=== PATIENT | male | born 1935 | race Caucasian/White ===

== ENCOUNTER → 2017-05-02 11:10 | Outpatient (CLI) | payer MEDICARE ==
[~2017-05-02] VITALS: Ht 177.8 cm; Wt 111.4 kg
--- NOTE | ~2017-05-02 | HEMODYNAMI ---
PATIENT:SELINA COOK MEDICAL RECORD: [id number] : 35 LOCATION:D.CAT ADMISSION DATE: 05/02/17 Generatedon:05/02/201714:03 Patient name: SELINA COOK Patient #: [id number] SSN: [id number] : 1935 Date of study: 05/02/2017 Page: Of Hemodynamic Procedure Report Patient Data Patient Demographics Procedure consent was obtained First Name: SELINA Gender: Male Last Name: JOEY : 1935 Middle Initial: TYLOR Age: 81 year(s) Patient #: [id number] Race: SSN: [id number] Additional ID: [id number] Contact details [address]: [address] [place] [address] State: [place] City: [place] Zip code: [address] Past Medical History Allergies Allergen Reaction Date Comments Reported Other allergy 11/08/2015 sulfa, clavulanic acid, amoxicillin Other allergy 05/02/2017 Amoxicillin, Sulfa, Clavulanic acid Admission Admission Data Admission Date: 05/02/2017 Admission Time: 11:10 Height (in.): 70 BSA: 2.28 (m2) Height (cm.): 177.8 BMI: 35.23 (kg/m2) Weight (lbs.): 245.51 Weight (kg.): 111.36 Lab Results Lab Result Date: 05/02/2017 Lab Result Time: 0:00 Biochemistry Name Units Result Min Max BUN mg/dl 31 --(----)-* 7 18 Creatinine mg/dl 1.6 --(----)-* 0.6 1.3 CBC Name Units Result Min Max Hemoglobin g/dl 14.3 --(*---)-- 13.5 17.5 Procedure Procedure Types Cath Procedure Diagnostic Procedure LHC LHC w/Coronaries w/Grafts PCI Procedure Coronary Stent Coronary Stent Initial Procedure Description Procedure Date Procedure Date: 05/02/2017 Procedure Start Time: 13:05 Procedure End Time: 13:53 Procedure Staff Name Function Harish Kennedy MD Performing Physician Edna Zarco RT Monitor Moe Infante RN Nurse Rosalva Hargrove RT Scrub Procedure Data Cath Procedure Fluoroscopy Diagnostic fluoroscopy Total fluoroscopy Time: time: 13.1 min 13.1 min Diagnostic fluoroscopy Total fluoroscopy dose: dose: 2593 mGy 2593 mGy Contrast Material Contrast Material Type Amount (ml) Isovue 300 134 Entry Location Entry Primary Successful Side Size Upsize Upsize Entry Closure Succes sful Closure Location (Fr) 1 (Fr) 2 (Fr) Remarks Device Remarks Femoral Right 5 Fr 6 Fr Exoseal artery Short Estimated blood loss: 10 ml Diagnostic catheters Device Type Used For End Catheter Placement MULTIPACK JL 4.0 5Fr Procedure catheter DIAGNOSTIC AR MOD 5Fr Procedure Catheter ([id number]) DIAGNOSTIC IM 5Fr Procedure catheter ([id number]) MULTIPACK Pigtail 5 Fr Ventriculography catheter Procedure Complications No complications Procedure Medications Medication Administration Route Dosage 0.9% NaCl I.V. 100 ml/hr Oxygen NC 2 l/min Heparin Flush Bag added to field 2 bags (1000units/500ml NS) Lidocaine 2% added to field 20 Versed I.V. 1 mg Fentanyl I.V. 50 mcg Versed I.V. 1 mg Fentanyl I.V. 50 mcg Heparin Bolus I.V. 95062 units Versed I.V. 1 mg Plavix P.O. 600 mg Fentanyl I.V. 50 mcg Hemodynamics Rest HGB: 14.3 (g/dl) O2 Consumption: Estimated: 256.88 (ml/min) O2 Consumption index ed: Estimated:112.67 (ml/min/m) Heart Rate: 66 (bpm) Pressure Samples Time Site Value (mmHg) Purpose Heart Use Rate(bpm) 13:15 LV 151/29,38 Snapshot 65 13:16 LV 157/12,28 Pullback 67 13:16 AO 150/79(104) Pullback 67 Gradients Valve Time Site 1 Site 2 Mean SEP/DFP Peak To Heart Use (mmHg) (sec/min) Peak Rate (mmHg) (bpm) Aortic 13:16 LV AO 5 16 7 67 157/12,28 150/79(104) Calculations Valve P-P Mean Valve Index Valve Source Name Gradient Area Flow (cm2) Aortic 7 5 7 5 Snapshots Pre Cath Intra NCS Post Cath Vital Signs Time Heart Resp SPO2 etCO2 NIBP (mmHg) Rhythm Pain Sedation Rate (ipm) (%) (mmHg) Status Level (bpm) 12:57:54 66 18 99 36.2 155/89(139) NSR 0 (11) 10(A) , No pain 13:02:37 66 16 97 36.9 150/92(134) NSR 0 (11) 10(A) , No pain 13:07:17 66 17 95 45.2 153/85(122) NSR 0 (11) 10(A) , No pain 13:12:35 63 18 96 40.7 142/88(111) NSR 0 (11) 10(A) , No pain 13:18:43 66 19 97 39.9 138/86(112) NSR 0 (11) 10(A) , No pain 13:23:26 67 18 96 41.4 143/75(108) NSR 0 (11) 10(A) , No pain 13:28:06 64 16 97 36.9 150/83(118) NSR 0 (11) 10(A) , No pain 13:32:47 67 14 96 40.7 135/82(118) NSR 0 (11) 10(A) , No pain 13:37:26 68 12 97 36.2 140/80(116) NSR 0 (11) 10(A) , No pain 13:42:43 64 16 96 38.4 141/76(122) NSR 0 (11) 10(A) , No pain 13:47:24 65 13 98 36.2 138/78(109) NSR 0 (11) 10(A) , No pain 13:52:04 70 12 98 30.1 148/87(119) NSR 0 (11) 10(A) , No pain Medications Time Medication Route Dose Verified Delivered Reason Notes Effectiveness by by 13:01:42 0.9% NaCl I.V. 100 Moe Moe Per physician ml/hr Naresh Infante RN RN 13:01:52 Oxygen NC 2 Moe Moe Per physician l/min Naresh Infante RN RN 13:02:05 Heparin Flush added 2 bags Moe Moe used for Bag to Naresh Infante procedure (1000units/500ml field RN RN NS) 13:02:20 Lidocaine 2% added 20ml Moe Moe for local to vial Lorigan Lorigan anesthetic field RN RN 13:02:36 Versed I.V. 1 mg Moe Moe for sedation Naresh Infante RN RN 13:02:54 Fentanyl I.V. 50 mcg Moe Moe for sedation Naresh nIfante RN RN 13:06:51 Versed I.V. 1 mg Moe Moe for sedation Naresh Infante RN RN 13:06:56 Fentanyl I.V. 50 mcg Moe Moe for sedation Naresh Infante RN RN 13:25:20 Heparin Bolus I.V. 11,000 Moe Moe for units Naresh Infante anticoagulation RN RN 13:28:33 Versed I.V. 1 mg Moe Moe for sedation Naresh Infante RN RN 13:52:58 Plavix P.O. 600 mg Moe Moe for Naresh Infante antiplatelet RN RN therapy 13:56:29 Fentanyl I.V. 50 mcg Moe Moe for sedation Naresh Infante RN advertising manager Log Time Note 12:34:15 Edna MATIAS(R) sent for patient. Start room use. 12:34:16 Time tracking: Regular hours 12:34:20 Plan of Care:Hemodynamics will remain stable., Cardiac rhythm will remain stable., Comfort level will be maintained., Respiratory function will remain adequate., Patient/ family verbilizes understanding of procedure., Procedure tolerated without complication., Recovers from procedure without complications.. 12:34:23 Signed procedure consent form obtained from patient. 12:37:24 Lab Result : Hemoglobin 14.3 g/dl 12:37:24 Lab Result : Creatinine 1.6 mg/dl 12:37:24 Lab Result : BUN 31 mg/dl 12:37:44 Patient Weight : 245.51 lbs 12:37:59 Patient Height : 70 inches 12:40:58 Patient received from Pre/Post Procedure Room to CCL 1 Alert and oriented. Tansferred to table in Supine position. 12:40:59 Warm blankets applied, and tera hugger turned on for patient comfort. 12:41:00 ECG and BP/O2 sat monitors applied to patient. 12:41:00 Correct patient and procedure confirmed by team. 12:57:02 Vital chart was started 12:57:05 Baseline sample Acquired. 12:57:11 Rhythm: sinus rhythm 12:57:14 Full Disclosure recording started 12:58:07 H&P Date Dictated: 05/02/2017 Within 30 days and on chart.. 12:58:10 Pre-procedure instructions explained to patient. 12:58:12 Family in waiting room. 12:58:15 Patient NPO since Midnight. 12:58:47 Patient allergic to Other allergyAmoxicillin, Sulfa, Clavulanic acid 12:58:52 Is the patient allergic to Iodine/contrast media? No. 12:58:56 Was the patient premedicated? Yes 12:58:58 Is patient on blood thinner?No 12:59:02 Patient diabetic? Yes. 12:59:04 If diabetic: On Metformin? Unknown 12:59:10 Snore? Yes 12:59:13 Sleep apnea? No 12:59:19 Airway obstruction? Yes COPD 12:59:23 Dentures? No ? 12:59:37 IV patent on arrival in left antecubital with 0.9% NaCl at [facility]. 12:59:42 Lab results completed and on chart. 12:59:46 Right groin area was prepped with chlora-prep and draped in sterile fashion 12:59:48 Alarms reviewed by R. N. 12:59:49 Sharps counted by scrub and verified by R.N. 12:59:50 Physician arrived 12:59:50 Physician paged 12:59:51 --------ALL STOP TIME OUT------ 12:59:52 Final Timeout: patient, procedure, and site verified with staff and physician. All members of the team are in agreement. 12:59:54 Right groin site verified by team. 12:59:58 Physical assessment completed. ASA score P 2 - A patient with mild systemic disease as per Harish Kennedy MD. 13:00:04 Sedation plan: IV Moderate Sedation Medication:Versed, Fentanyl 13:01:42 0.9% NaCl 100 ml/hr I.V. was administered by Moe Infante RN; Per physician; 13:01:52 Oxygen 2 l/min NC was administered by Moe Infante RN; Per physician; 13:02:05 Heparin Flush Bag (1000units/500ml NS) 2 bags added to field was administered by oMe Infante RN; used for procedure; 13:02:20 Lidocaine 2% 20ml vial added to field was administered by Moe Infante RN; for local anesthetic; 13:02:36 Versed 1 mg I.V. was administered by Moe Infante RN; for sedation; 13:02:54 Fentanyl 50 mcg I.V. was administered by Moe Infante RN; for sedation; 13:05:15 Use device set Femoral Dx 13:05:17 Tegaderm 4 x 4 (1626W) opened to sterile field. 13:05:19 ACIST Manifold (48088) opened to sterile field. 13:05:20 ACIST Hand Control (05156) opened to sterile field. 13:05:21 Bag Decanter (2002S) opened to sterile field. 13:05:21 ACIST Syringe (54998) opened to sterile field. 13:05:22 Medline Cath Pack ([id number]) opened to sterile field. 13:05:23 DIAGNOSTIC WIRE .035 260cm J wire (017146) opened to sterile field. 13:05:24 DIAGNOSTIC Multipack 5Fr catheter set (FV6015) opened to sterile field. 13:05:25 PERCUTANEOUS ENTRY 19GA needle opened to sterile field. 13:05:56 Procedure started. 13:05:58 Local anesthetic to right femoral artery with Lidocaine 2% by Harish Kennedy MD.INITIAL ACCESS ONLY 13:06:29 A 5 Fr sheath was inserted into the Right Femoral artery 13:06:47 SHEATH 5Fr Prelude ([id number]) opened to sterile field. 13:06:51 Versed 1 mg I.V. was administered by Moe Infante RN; for sedation; 13:06:56 Fentanyl 50 mcg I.V. was administered by Moe Infante RN; for sedation; 13:08:13 A MULTIPACK JL 4.0 5Fr catheter was advanced over the wire and used for Procedure. 13:08:17 LCA angiography performed. 13:08:46 Catheter removed. 13:09:15 A DIAGNOSTIC AR MOD 5Fr Catheter (051120S) was advanced over the wire and used for Procedure. 13:09:52 RCA angiography performed. 13:11:03 SVG to Circ angiography performed. 13:11:16 Catheter removed. 13:11:32 A DIAGNOSTIC IM 5Fr catheter (745974P) was advanced over the wire and used for Procedure. 13:12:06 FRANK to LAD angiography performed. 13:15:13 Catheter removed. 13:16:05 A MULTIPACK Pigtail 5 Fr catheter was advanced over the wire and used for Ventriculography. 13:16:11 EF : 50 % 13:19:54 Proceeding to intervention. 13:19:54 Catheter removed. 13:20:03 INFLATOR Merit BasixCompak (FN7083) opened to sterile field. 13:20:50 GUIDE 6FR XBLAD 4.0 catheter (33973580) opened to sterile field. 13:21:29 BMW 190cm [place] 2 J wire (7313766Q) opened to sterile field. 13:21:44 SHEATH 6FR [place] (KWQ369) opened to sterile field. 13:22:09 TUBING High Pressure Extension Tubing (Kennedy) ([id number]) opened to sterile field. 13:22:33 Sheath upsized to a 6 Fr Short. 13:23:11 6 Fr XBLAD 4 guide catheter was inserted over the wire 13:23:24 BMW wire advanced. 13:25:20 Heparin Bolus 11,000 units I.V. was administered by Moe Infante RN; for anticoagulation; 13:27:01 BMW 300cm [place] 2 J wire ([id number]) opened to sterile field. 13:28:33 Versed 1 mg I.V. was administered by Moe Infante RN; for sedation; 13:28:37 Inflation number: 1 A EMERGE OTW 3.0 x 15 balloon ([id number]) was prepped and advanced across the Mid CX, then inflated to 12 ANNETTA for 0:24 (min:sec). 13:29:36 Inflation number: 1 The EMERGE OTW 3.0 x 15 balloon ([id number]) was reinflated across the Prox CX, to 14 ANNETTA for 0:27 (min:sec). 13:34:16 Balloon removed over the wire. 13:36:36 Inflation number: 1 A MAVERICK 2.0 X 15 balloon ([id number]) was prepped and advanced across the Dist CX, then inflated to 10 ANNETTA for 0:18 (min:sec). 13:37:35 Balloon removed over the wire. 13:43:34 Inflation Number: 2 A ELUNIR 2.5 x 12 stent ([id number]) was prepped and advanced across the Dist CX. The stent was deployed at 14 ANNETTA for 0:14 (min:sec). 13:44:53 Inflation number: 2 The EMERGE OTW 3.0 x 15 balloon ([id number]) was reinflated across the Prox CX, to 14 ANNETTA for 0:28 (min:sec). 13:45:26 Inflation number: 3 The EMERGE OTW 3.0 x 15 balloon ([id number]) was reinflated across the Prox CX, to 14 ANNETTA for 0:20 (min:sec). 13:48:34 Wire removed. 13:48:35 Guide catheter removed. 13:49:05 EXOSEAL 6Fr (EX600) opened to sterile field. 13:49:27 Sheath removed intact; hemostasis achieved with Exoseal to the Right Femoral artery. 13:49:55 Procedure ended.(Physican Out) 13:51:18 Fluoroscopy time 13.10 minutes. 13:51:24 Fluoroscopy dose: 2593 mGy 13:51:24 Flurop Dose total: 2593 13:51:42 Contrast amount:Isovue 300 134ml. 13:51:44 Sharps counted by scrub and verified by R.N. 13:51:49 Insertion/operative site no bleeding no hematoma. 13:51:53 Post right femoral artery:stable 13:51:56 Post Procedure Pulses reassessed and unchanged 13:52:00 Post-procedure physical assessment completed. ASA score P 2 - A patient with mild systemic disease as per Harish Kennedy MD. 13:52:02 Post procedure rhythm: unchanged. 13:52:06 Estimated blood loss: 10 ml 13:52:09 Post procedure instruction explained to patient.Patient verbalizes understanding. 13:52:34 Procedure type changed to Cath procedure, Diagnostic procedure, LHC, LHC w/Coronaries w/Grafts, PCI procedure, Coronary Stent, Coronary Stent Initial 13:52:35 Procedure and supply charges have been captured, reviewed, submitted and are correct. 13:52:58 Plavix 600 mg P.O. was administered by Moe Infante RN; for antiplatelet therapy; 13:53:13 Procedure Complication : No complications 13:53:15 Vital chart was stopped 13:53:17 See physician's report for complete and final results. 13:53:19 Report given to Pre/Post Procedure Room. 13:53:23 Patient transfered to Pre/Post Procedure Room with Stretcher. 13:53:25 Full Disclosure recording stopped 13:53:25 Procedure ended. 13:53:32 End room use (Document Last) 13:56:06 ACC-PCI Only Patient was given prescriptions, or instructed by Harish Kennedy MD to start/continue the following medications upon discharge: Plavix 13:56:29 Fentanyl 50 mcg I.V. was administered by Moe Infante RN; for sedation; Intervention Summary Intervention Notes Time ActionType Lesion and Equipment Action# Pressure Duration Attributes Used 13:28:37 Inflate Mid CX EMERGE OTW 1 12 00:24 balloon 3.0 x 15 balloon ([id number]) 13:29:36 Reinflate Prox CX EMERGE OTW 1 14 00:27 balloon 3.0 x 15 balloon ([id number]) 13:36:36 Inflate Dist CX MAVERICK 2.0 1 10 00:18 balloon X 15 balloon ([id number]) 13:43:34 Place stent Dist CX ELUNIR 2.5 x 2 14 00:14 12 stent ([id number]) 13:44:53 Reinflate Prox CX EMERGE OTW 2 14 00:28 balloon 3.0 x 15 balloon ([id number]) 13:45:26 Reinflate Prox CX EMERGE OTW 3 14 00:20 balloon 3.0 x 15 balloon ([id number]) Device Usage Item Name Manufacture Quantity Catalog Number [facility] [place], [place] Lot# / Charge Number Stock Stock Serial# Code Tegaderm 4 x 3M 1 1626W 850251 954177 015604 5 4 (1626W) ACIST Acist 1 52523 213609 667986 665085 5 Manifold Medical (19988) Systems Inc ACIST Hand Acist 1 24710 308337 035708 082663 5 Control Medical (44916) Systems Inc ACIST Syringe Acist 1 40535 837550 962908 041449 20 (81143) Medical Systems Inc Bag Decanter Microtek 1 2001S 947745 89786 336579 5 (2001S) Medical Inc. Medline Cath Cardinal 1 [id number] 114149 07855 504682 5 [facility] ([id number]) DIAGNOSTIC St Jae 1 312881 115408 620882 338608 30 WIRE .035 260cm J wire (997071) DIAGNOSTIC Cardinal 1 ON5174 945728 59260 433643 30 Multipack 5Fr Health catheter set (NA7388) PERCUTANEOUS Cook Medical 1 H49979 529439 897203 5 ENTRY 19GA needle SHEATH 5Fr Merit 1 [id number] 959222 471761 838625 5 Prelude Medical ([id number]) MULTIPACK JL Cardinal 1 015276 5 4.0 5Fr Health catheter DIAGNOSTIC AR Cardinal 1 [id number] 321018 194529 596387 15 MOD 5Fr Health Catheter (998535K) DIAGNOSTIC IM Cardinal 1 [id number] 291647 880433 685846 5 5Fr catheter Health (645205G) MULTIPACK Cardinal 1 719816 5 Pigtail 5 Fr Health catheter INFLATOR Merit 1 RJ2294 228818 452818 078578 15 [facility] Medical BasixCompak (VM6361) GUIDE 6FR Cardinal 1 48675667 703529 205623 239486 3 XBLAD 4.0 Health catheter (10319134) BMW 190cm Aquino 1 [id number] 648102 77293 987476 5 [place] 2 J Vascular wire (5360319Y) SHEATH 6FR Terumo 1 CTI689 938638 984389 202621 40 [place] (ZEV506) TUBING High Merit 1 [id number] 326137 17056 514223 10 Pressure Medical Extension Tubing (Kennedy) (BA7874G) BMW 300cm Aquino 1 [id number] 876291 118808 648777 5 [place] 2 J Vascular wire (8523928N) EMERGE OTW [place] 1 [id number] 056187 739498 757617 5 [id number] 3.0 x 15 Scientific balloon (0376830081) MAVERICK 2.0 [place] 1 [id number] 506594 156537 429298 1 [id number] X 15 balloon Scientific (6919929784) ELUNIR 2.5 x Cardinal 1 [id number] 246335 458242 907953 5 [id number] 12 stent Health ([id number]) EXOSEAL 6Fr Cardinal 1 EX600 038918 229790 041687 10 (EX600) Health Signature Audit Odin Stage Time Signature Unsigned Intra-Procedure 05/02/2017 Edna Haroldo 1:59:53 PM RT(R) Signatures Monitor : Edna Zarco Signature : RT Date : Time : [facility] [address] [place] [address]
[~2017-05-02 11:10] MED LIST: BAYER CHEWABLE81 MG PO; FLOMAX0.4 MG PO; GLIMEPIRIDE2 MG PO; GLUCOPHAGE500 MG PO; IMDUR60 MG PO; LANTUS INSULIN10 ML SC; LASIX40 MG PO; NITROSTAT0.4 MG SL; NOVOLOG100 U/M1 SQ; PLAVIX75 MG PO; PRILOSEC20 MG PO; XANAX0.5 MG PO; ZIPSOR25 MG PO
[2017-05-02 11:42] VITALS: BP 156/78; Ht 177.8 cm; Wt 111.4 kg
[2017-05-02 11:53] LABS: BASOPHILS 0.4 % (0-2); EOSINOPHILS 2.1 % (0-7); HEMATOCRIT 43.3 % (42.0-54.0); HEMOGLOBIN 14.3 g/dL (13.5-17.5); IMMATURE GRANULOCYTES 0.1 % (0-5); LYMPHOCYTES 41.9 % (15-50); MCH 27.7 pg (26.0-34.0); MCV 83.9 fL (80.0-100.0); MEAN PLATELET VOLUME 11.3 fL (7.4-10.4); MONOCYTES 7.5 % (2-11); PLATELET COUNT 235 10x3/uL (130-400); RBC 5.16 10x6/uL (4.20-6.10); RDW 15.4 % (11.5-14.5)
[2017-05-02 12:12] LABS: ANION GAP 11.7 mmol/L (8-16); CALCIUM 9.2 mg/dL (8.5-10.1); CARBON DIOXIDE 27.5 mmol/L (21.0-32.0); CREATININE - SERUM 1.6 mg/dL (0.6-1.3); POTASSIUM - SERUM 4.2 mmol/L (3.5-5.1)
== END | disposition home or self-care (01) ==
LOC: D.CATH 11:10
PROVIDERS: Internal Medicine Cardiovascular Disease
DX: I20.9 Angina pectoris, unspecified (principal); R94.30 Abnormal result of cardiovascular function study, unspecified; J44.9 Chronic obstructive pulmonary disease, unspecified; Z95.1 Presence of aortocoronary bypass graft; Z01.812 Encounter for preprocedural laboratory examination
CPT/HCPCS: 93459; C9600